=== PATIENT | male | born 1955 | race Caucasian/White ===

== ENCOUNTER → 2020-02-08 09:38 | Outpatient (CLI) | payer MEDICARE, SELFPAY ==
--- NOTE | 2020-02-08 09:44 | DI.RAD.S_ITS ---
PROCEDURE: XR LUMBAR SPINE MIN 4V INDICATIONS: lbp TECHNIQUE: 5 views of the lumbar spine were acquired. COMPARISON: None. FINDINGS: Bones: 5 nonrib-bearing vertebrae are present. There is grade 1 anterolisthesis of L4 on L5. Mild degenerative disc disease is present in lumbar spine. There is severe facet arthropathy at L4-L5 and L5-S1. No vertebral body compression fractures. No suspicious bony lesions. Soft tissues: Overlying bowel gas pattern is normal. No suspicious soft tissue calcifications. There are multiple surgical clips in pelvis. Moderate to severe atherosclerosis of the abdominal aorta. Oblique images: No pars defects. IMPRESSION: 1. Mild degenerative disc disease. 2. Severe facet arthropathy in the lower lumbar spine. 3. Grade 1 anterolisthesis of L4 on L5. No pars defects. Dictated by: Jim Garcia M.D. on 02/08/2020 at 10:51 Approved by: Jim Garcia M.D. on 02/08/2020 at 10:54
== END ==
PROVIDERS: PCP Family Medicine; Referring Provider Physical Medicine & Rehabilitation; Visit Provider Physical Medicine & Rehabilitation
DX: M54.5 Low back pain (principal); M51.16 Intervertebral disc disorders with radiculopathy, lumbar region; M47.26 Other spondylosis with radiculopathy, lumbar region; M43.16 Spondylolisthesis, lumbar region; E11.9 Type 2 diabetes mellitus without complications; Z95.0 Presence of cardiac pacemaker; Z95.2 Presence of prosthetic heart valve
CPT/HCPCS: 72110; 99214

== ENCOUNTER → 2020-02-29 09:46 | Outpatient (CLI) | payer MEDICARE, SELFPAY ==
--- NOTE | 2020-02-29 09:48 | DI.CT.S_ITS ---
PROCEDURE: CT LUMBAR SPINE WO CON INDICATIONS: Left-sided lumbar radiculopathy TECHNIQUE: Noncontrast 3 mm thick sections acquired from the T12 level to the sacrum. Sagittal and coronal reformats were constructed. For radiation dose reduction, the following was used: automated exposure control. COMPARISON: None. FINDINGS: Image quality: Excellent. Bones: There is 7 mm anterolisthesis of L4 on L5. Otherwise normal alignment. No pars defect. Vertebral body heights maintained. Disc height loss with associated degenerative endplate changes from L3-L4 through L5-S1 including endplate sclerosis and Schmorl nodes. Facet hypertrophy from L3-L4 through L5-S1 with air in the joint spaces at L4-L5 and L5-S1. T12-L1: No osseous spinal canal or neural foraminal stenosis. L1-L2: No osseous spinal canal or neural foraminal stenosis. L2-L3: No osseous spinal canal or neural foraminal stenosis. There is a circumferential disc bulge which flattens the ventral thecal sac and contributes to mild bilateral neural foraminal stenosis. L3-L4: Diffuse disc bulge flattens the ventral thecal sac and contributes to mild bilateral neural foraminal stenosis in conjunction with facet hypertrophy and buckling of the ligamentum flavum. L4-L5: Pseudo bulge related to the anterolisthesis combines with diffuse disc bulge to flatten and indent the ventral thecal sac. There may be mass effect upon the traversing L5 nerve roots. There is further mild spinal canal stenosis related to buckling of the ligamentum flavum and facet hypertrophy. These factors combine to produce moderate bilateral neural foraminal stenosis. L5-S1: No spinal canal stenosis. There is moderate to severe bilateral neural foraminal narrowing, due to a combination of disc height loss with neural foraminal labs as well as diffuse disc bulge, posterior osteophytic ridging of the endplates, and facet hypertrophy. Soft tissues: Unenhanced prevertebral and paraspinous soft tissues are grossly unremarkable. Aortic atherosclerosis. Small metallic densities seen in the retroperitoneal soft tissues are presumably post-surgical/post-procedural. IMPRESSION: Degenerative changes from L2-L3 through L5-S1. Spinal canal stenosis most pronounced at L4-L5, where there may be mild mass effect upon the traversing L5 nerve roots. Varying degrees of neural foraminal stenosis, moderate-severe at L5-S1 and moderate at L4-L5 bilaterally. Dictated by: Gigi Dye M.D. on 02/29/2020 at 10:06 Approved by: Gigi Dye M.D. on 02/29/2020 at 10:12
== END ==
PROVIDERS: PCP Family Medicine; Referring Provider Physical Medicine & Rehabilitation; Visit Provider Physical Medicine & Rehabilitation
DX: M51.16 Intervertebral disc disorders with radiculopathy, lumbar region (principal); M51.17 Intervertebral disc disorders with radiculopathy, lumbosacral region; M43.16 Spondylolisthesis, lumbar region; M48.061 Spinal stenosis, lumbar region without neurogenic claudication; M48.07 Spinal stenosis, lumbosacral region
CPT/HCPCS: 72131

== ENCOUNTER → 2020-03-24 09:12 | Outpatient (CLI) | payer MEDICARE, SELFPAY ==
[2020-03-25 17:15] LABS: COVID19 Sendout Not Detected (Not Detect)
== END ==
PROVIDERS: PCP Family Medicine; Visit Provider Physician Assistant
DX: Z11.59 Encounter for screening for other viral diseases (principal)
CPT/HCPCS: 87635

== ENCOUNTER 2020-03-27 08:11 | Outpatient (CLI) | payer MEDICARE, SELFPAY ==
[2020-03-27] VITALS (9 sets, daily range): BP systolic 108–128; BP diastolic 69–83; PULSE 61–75; RESP 14–16; TEMP 36.2; O2SAT 97–99
--- NOTE | 2020-03-27 08:12 | DI.RAD.S_ITS ---
PROCEDURE: PAIN L/S TRANSFORAMINAL INJECT INDICATIONS: SPONDYLOSIS COMPARISON: None. FINDINGS: Fluoroscopic spot filming was performed to verify placement of spinal needles at the left L4-L5 neural foramen level(s), as labeled on the films. Appropriate location(s) of the needle tip(s) was confirmed by injection of iodinated contrast. IMPRESSION: Access needle at the left L4-L5 neural foramen. Dictated by: Milady Manzo MD, PhD on 03/27/2020 at 13:36 Approved by: Milady Manzo MD, PhD on 03/27/2020 at 13:36
--- NOTE | 2020-03-27 08:46 | PC.NURSE ---
Todd is A&O able to make needs known. Green pain log with post injection instructions reviewed. Has no questions or concerns at this time.
[2020-03-27] MEDS: MIDAZOLAM 5 MG/5 ML VIAL IV (09:13)
[2020-03-27] MEDS: fentaNYL 100 MCG/2 ML INJ 50 MCG IV (09:13)
[2020-03-27] MEDS: DEXAMETHASONE 10 MG/ML VIAL 20 MG INJ (09:17)
[2020-03-27] MEDS: IOPAMIDOL 15 ML VIAL 3 ML INJ (09:17)
[2020-03-27] MEDS: BETAMETHASONE 30 MG/5 ML MDV 6 MG INJ (09:17)
[2020-03-27] MEDS: BUPIVACAINE 0.25% (PF) VIAL 2 ML INJ (09:17)
--- NOTE | 2020-03-27 09:32 | P.PCN_ITS ---
Date/Time/Diagnoses Date of procedure: 03/27/20 Time of procedure: 09:32 Pre-procedure diagnosis: 1. FORAMINAL STENOSIS WITH LE SYMPTOMS Post-procedure diagnosis: same Procedure Notes Procedure: 1. FLUOROSCOPICALLY GUIDED CONTRAST CONTROLLED TRANSFORAMINAL EPIDURAL STEROID INJECTION - LEFT L4/5 Indications: Todd is referred by Dr. Hogan for treatment of Foraminal Stenosis with Left LE Symptoms Physician: aMnjeet Reyes Total Fluoroscopy time (seconds): 21 Total sedation minutes: 15 Complications: none Procedure in detail & Post-procedure care: FINDINGS Foraminal Nerve Root Compression secondary to disc disease and facet hypertrophy DESCRIPTION OF PROCEDURE Following review of allergy and review of potential side effects and complications, including, but not necessarily limited to, infection, allergic reaction, local tissue breakdown, stroke, temporary or permanent nerve injury, paralysis, and possible , the patient indicated that the patient understood and agreed to proceed. An informed consent document was signed by the patient, witnessed by a nurse, and placed in the patient's chart. Additionally, other treatment options including medications, modalities, and physical therapy were reviewed with the patient. After review of previous anaesthesic history and IV conscious sedation the patient was deemed safe to proceed with today?s procedure with IV conscious sedation as ASA class II designation. Safety time-out was performed to confirm patient ID, procedure to be performed and site of procedure. IV sedation was accomplished with a combination of 2mg of Versed and 50mcg of Fentanyl administered by the RN after DO order, titrated to patient comfort during the course of the procedure while the patient remained responsive to all verbal commands In the prone position following sterile prep and drape of the lumbar region, the left L4/5 posterior neuroforamen was identified fluoroscopically. The skin was anesthetized via a 25-gauge 1.5-inch needle with 1% lidocaine solution. At this point, a 25-gauge 3.5-inch spinal needle was atraumatically introduced and advanced under fluoroscopic guidance through the posterior left L4/5 neuroforamen to approximately the anterior aspect of the canal. Depth was confirmed on lateral view. Following negative aspiration, injection of approximately 1.5 cc of Isovue 200 under live fluoroscopy in the AP view confirmed excellent flow along the nerve root, into the epidural space without vascular or intrathecal uptake observed Radiological data, including multiple fluoroscopic views of the lumbosacral spine, reveal a spinal needle at the left L4/5 posterior neuroforamen. Subsequent views show flow of contrast material flowing superiorly and inferiorly along the nerve root confirming epidural flow. Subsequently, a test dose of 1.5 cc of 1% lidocaine solution was administered and patient was observed for two minutes for signs or symptoms of complications, including abdominal pain, shortness of breath, bilateral upper or lower extremity weakness, nausea and vomiting, prior to steroid injection. At this point, a total of 3cc or 20mg of dexamethasone and 6mg of betamethasone was injected without incident. The procedure tolerated the procedure well without signs or symptoms of complications prior to transfer to the recovery area continued monitoring without incident. The patient was then transferred to the recovery area where they were observed for an appropriate time after the injection. The patient reported a VAS score of 9 prior to the procedure and a post- procedure VAS of 1. POST OP INSTRUCTIONS The patient was provided a Pain Log to continue to record their response to the target-specific procedure prior to follow-up visit with their referring physician. Additionally, specific post-injection care instructions and a contact number to our office were provided if concerns arise regarding possible complications associated with the procedure are suspected.
--- NOTE | 2020-03-27 10:12 | PC.NURSE ---
Patient d/c, steady on feet, left with green pain log and had no questions or concerns.
--- NOTE | 2020-03-27 16:06 | PC.NURSE ---
Tolerated procedure well. Sedation administered by ANITHA Amin. All other meds given by Dr Reyes. Vitals stable during and immediately post procedure. Report given to ANITHA Gibson for post procedure recovery.
== END 2020-03-27 09:56 | disposition home or self-care (01) ==
LOC: RAD 08:12
PROVIDERS: PCP Family Medicine; Referring Provider Family Medicine; Visit Provider Physical Medicine & Rehabilitation
DX: M48.061 Spinal stenosis, lumbar region without neurogenic claudication (principal); M51.16 Intervertebral disc disorders with radiculopathy, lumbar region
CPT/HCPCS: 64483; 99152; J0702; J1100; J2250; J3010

== ENCOUNTER → 2020-07-30 09:37 | Outpatient (CLI) | payer MEDICARE, SELFPAY ==
[2020-07-30 11:02] LABS: COVID19 -Nasal RAPID Negative (Negative)
== END ==
PROVIDERS: PCP Family Medicine; Visit Provider Physical Medicine & Rehabilitation
DX: Z01.812 Encounter for preprocedural laboratory examination (principal); Z20.828 Contact with and (suspected) exposure to other viral communicable diseases
CPT/HCPCS: 87635; C9803

== ENCOUNTER 2020-07-31 08:54 | Outpatient (CLI) | payer MEDICARE, SELFPAY ==
--- NOTE | 2020-07-31 08:56 | DI.RAD.S_ITS ---
PROCEDURE: PAIN L/S FACET INJ/BLK 1ST JASVIR COMPARISON: None. INDICATIONS: SPONDYLOSIS FINDINGS: Needle tip localization has been performed bilaterally for steroid injection at the facet joints at L4-5, and L5-S1. IMPRESSION: Successful needle tip localization for lower lumbosacral spine facet joint steroid injections bilaterally. Dictated by: Calvin Jaeger M.D. on 07/31/2020 at 11:49 Approved by: Calvin Jaeger M.D. on 07/31/2020 at 11:50
[2020-07-31 09:10] VITALS: BP 118/77; PULSE 81; RESP 15; TEMP 36.2; O2SAT 96
[2020-07-31 10:10] VITALS: BP 127/67; PULSE 67; RESP 15; O2SAT 95
[2020-07-31] MEDS: fentaNYL 100 MCG/2 ML INJ 50 MCG IV (10:10)
[2020-07-31] MEDS: MIDAZOLAM 5 MG/5 ML VIAL IV (10:10)
[2020-07-31 10:15] VITALS: BP 110/57; PULSE 77; RESP 14; O2SAT 94
[2020-07-31 10:20] VITALS: BP 110/57; PULSE 79; RESP 12; O2SAT 95
[2020-07-31] MEDS: LIDOCAINE 1% 20 ML 10 ML INJ (10:24)
[2020-07-31] MEDS: BETAMETHASONE 30 MG/5 ML MDV 12 MG INJ (10:25)
[2020-07-31] MEDS: IOPAMIDOL 15 ML VIAL 3 ML INJ (10:25)
[2020-07-31] MEDS: BUPIVACAINE 0.5% (PF) VIAL 5 ML INJ (10:25)
--- NOTE | 2020-07-31 10:28 | P.PCN_ITS ---
Date/Time/Diagnoses Date of procedure: 07/31/20 Time of procedure: 10:28 Pre-procedure diagnosis: 1. FACET ARTHROPATHY 2. AXIAL LBP 3. MULTILEVEL DDD Post-procedure diagnosis: same Procedure Notes Procedure: 1. FLUOROSCOPICALLY GUIDED CONTRAST CONTROLLED FACET JOINT INJECTIONS BILATERAL L4/5, L5/S1 Indications: Todd is referred by Dr. Hogan for treatment of Axial LBP Physician: Manjeet Reyes Total Fluoroscopy time (seconds): 12 Total sedation minutes: 10 Complications: none Procedure in detail & Post-procedure care: FINDINGS Multilevel Facet Arthropathy with Clinically significant axial LBP DESCRIPTION OF PROCEDURE Fluoroscopically guided, contrast-controlled bilateral L4/5, L5/S1 facet joint injections. Following review of allergy and review of potential side effects and complications, including, but not necessarily limited to, infection, allergic reaction, local tissue breakdown, stroke, temporary or permanent nerve injury, paralysis, and possible , the patient indicated that the patient understood and agreed to proceed. An informed consent document was signed by the patient, witnessed by a nurse, and placed in the patient's chart. Additionally, other treatment options including medications, modalities, and physical therapy were reviewed with the patient. After review of previous anaesthesic history and IV conscious sedation the patient was deemed safe to proceed with today?s procedure with IV conscious sedation as ASA class II designation. Safety time-out was performed to confirm patient ID, procedure to be performed and site of procedure. IV sedation was accomplished with a combination of 2mg of Versed and 50mcg of Fentanyl was administered by the RN after DO order, titrated to patient comfort during the course of the procedure while the patient remained responsive to all verbal commands In the prone position, following sterile prep and drape of the lumbar region, the posterior aspect of the L4/5, L5/S1 facet joints were identified fluoroscopically. The skin was anesthetized via a 25-gauge 1.5inch needle with 1% lidocaine solution into the corresponding facet joints. At this point, a 22- gauge 3.5-inch spinal needle was atraumatically introduced and advanced under fluoroscopic guidance into the corresponding facet joints. Following negative aspiration, injections of approximately 0.2cc of Isovue 200 confirmed interar ticular placement without vascular uptake. The identical procedure was then performed at the L4/5, L5/S1 facet joints on the left. Radiological data, including multiple fluoroscopic views of the lumbosacral spine, reveal a spinal needle at the L4/5, L5/S1 facet joints bilaterally. Subsequent views show flow of contrast material both superiorly and inferiorly within the joint space without vascular or intrathecal uptake. At this point, a total of 0.5cc including a mixture of 0.25cc Marcaine and 0.25cc betamethasone was injected without complication into each of the corresponding facet joints. The patient tolerated the procedure well without signs or symptoms of complications prior to transfer to the recovery area continued monitoring without incident. The patient was then transferred to the recovery area where they were observed for an appropriate period of time after the injection. The patient reported a VAS score of 7 prior to the procedure and a post- procedure VAS of 0. POST OP INSTRUCTIONS The patient was provided a Pain Log to continue to record their response to the target-specific procedure prior to follow-up visit with their referring physician. Additionally, specific post-injection care instructions and a contact number to our office were provided if concerns arise regarding possible complications associated with the procedure are suspected.
[2020-07-31 10:30] VITALS: BP 118/72; PULSE 72; RESP 17; O2SAT 96
[2020-07-31 10:35] VITALS: BP 120/73; PULSE 78; RESP 15; O2SAT 95
--- NOTE | 2020-07-31 11:33 | PC.NURSE ---
Pt found to have a pressure sore on right side of back by Dr Reyes once positioned on the table. Open, red, patient unaware. Dr Reyes cleaned, placed bacitracin and tegaderm on site. 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
== END 2020-07-31 10:45 | disposition home or self-care (01) ==
LOC: RAD 08:54
PROVIDERS: PCP Family Medicine; Referring Provider Physical Medicine & Rehabilitation; Visit Provider Physical Medicine & Rehabilitation
DX: M47.816 Spondylosis without myelopathy or radiculopathy, lumbar region (principal); M54.5 Low back pain; M51.36 Other intervertebral disc degeneration, lumbar region; M51.37 Other intervertebral disc degeneration, lumbosacral region
CPT/HCPCS: 64493; 64494; 99152; J0702; J2250; J3010

== ENCOUNTER → 2020-10-22 13:44 | Outpatient (CLI) | payer MEDICARE, SELFPAY ==
[2020-10-22 15:59] LABS: COVID19 -Nasal RAPID Negative (Negative)
== END ==
PROVIDERS: PCP Family Medicine; Visit Provider Physical Medicine & Rehabilitation
DX: Z20.822 Contact with and (suspected) exposure to COVID-19 (principal)
CPT/HCPCS: 87635; C9803

== ENCOUNTER 2020-10-23 14:49 | Outpatient (CLI) | payer MEDICARE, SELFPAY ==
[2020-10-23] VITALS (7 sets, daily range): BP systolic 101–125; BP diastolic 57–74; PULSE 84–93; RESP 12–20; TEMP 36.6–36.7; O2SAT 94–98
--- NOTE | 2020-10-23 14:50 | DI.RAD.S_ITS ---
PROCEDURE: PAIN L/S FACET INJ/BLK 1ST JASVIR COMPARISON: [facility], CT, CT LUMBAR SPINE WO CON, 02/29/2020, 9:46. [facility], CR, XR LUMBAR SPINE MIN 4V, 02/08/2020, 9:11. INDICATIONS: Spondylosis without myelopathy or radiculopathy FINDINGS: 6 intraoperative fluoroscopy images demonstrate needle placement at L4, L5 and S1 bilaterally. IMPRESSION: Needle placement under fluoroscopy guidance for pain management. Dictated by: Jim Garcia M.D. on 10/23/2020 at 16:42 Approved by: Jim Garcia M.D. on 10/23/2020 at 16:43
[2020-10-23] MEDS: fentaNYL 100 MCG/2 ML INJ 50 MCG IV (15:55)
[2020-10-23] MEDS: MIDAZOLAM 5 MG/5 ML VIAL IV (15:58)
[2020-10-23] MEDS: IOPAMIDOL 15 ML VIAL 3 ML INJ (15:59)
[2020-10-23] MEDS: LIDOCAINE 1% 20 ML 10 ML INJ (15:59)
[2020-10-23] MEDS: BUPIVACAINE 0.5% (PF) VIAL 5 ML INJ (16:00)
--- NOTE | 2020-10-23 16:16 | P.PCN_ITS ---
Date/Time/Diagnoses Date of procedure: 10/23/20 Time of procedure: 16:17 Pre-procedure diagnosis: 1. FACET ARTHROPATHY Post-procedure diagnosis: same Procedure Notes Procedure: 1. BILATERAL- L4, L5 and S1 DIAGNOSTIC MB BLOCKS with LA Anesthetic Indications: Todd is referred by Dr. Hogan for treatment of Bilateral Axial LBP. Physician: Manjeet Reyes Total Fluoroscopy time (seconds): 11 Total sedation minutes: 13 Complications: none Procedure in detail & Post-procedure care: DESCRIPTION OF PROCEDURE Fluoroscopically guided, contrast-controlled bilateral L4, L5 and S1 medial branch blocks with 0.5cc of 0.5% Marcaine. Following review of allergy and review of potential side effects and complications, including, but not necessarily limited to, infection, allergic reaction, local tissue breakdown, nerve injury, paralysis, stroke and possible , the patient indicated that the patient understood and agreed to proceed. An informed consent document was signed by the patient, witnessed by a nurse, and placed in the patient's chart. After review of previous anaesthesic history and IV conscious sedation the patient was deemed safe to proceed with today's procedure with IV conscious sedation as ASA class II designation. Safety time-out was performed to confirm patient ID, procedure to be performed and site of procedure. IV sedation was accomplished with a combination of 3mg of Versed and 50mcg of Fentanyl was administered by the RN after DO order, titrated to patient comfort during the course of the procedure while the patient remained responsive to all verbal commands In the prone position, following sterile prep and drape of the lumbar region, the right L4, L5 and S1 anatomical location of the medial branch of the dorsal ramus was identified fluoroscopically. Subsequently an anesthetic skin wheal using 1% lidocaine solution was initiated at each of the anatomical spots. Subsequently then a 22-gauge 3.5-inch spinal needle was atraumatically introduced and advanced under fluoroscopic guidance at each of the corresponding sites at the right L4, L5 and S1 MB. After negative aspiration, 0.2cc of Isovue 200 was injected, confirming placement without vascular or intrathecal uptake. Subsequently then 0.5cc of 0.5% Marcaine solution was injected at each of the corresponding sites at the right L4, L5 and S1 medial branch locations. The identical procedure was replicated on the left. The patient tolerated the procedure well without signs or symptoms of complications prior to transfer to the recovery area continued monitoring without incident. Post-procedure, the patient was monitored initiating provocative activities to measure the amount of relief from block of the facetogenic pain. The patient reported a VAS of 7 prior to the procedure and a post-procedure VAS of 1. It has been a pleasure to assist in the diagnostic and therapeutic care of your patient. POST OP INSTRUCTIONS The patient was provided with a Pain Log to complete over the next several hours and subsequent days prior to the patient's follow up with the ordering physician. If the patient has special technical operations officer relief to the solution applied, then they may be a candidate for medial branch rhizotomy. The patient is aware, was provided, once again, with a Pain Log and will follow up with the referring physician for review and clinical correlation
== END 2020-10-23 16:35 | disposition home or self-care (01) ==
PROVIDERS: PCP Family Medicine; Referring Provider Physical Medicine & Rehabilitation; Visit Provider Physical Medicine & Rehabilitation
DX: M47.816 Spondylosis without myelopathy or radiculopathy, lumbar region (principal); M47.817 Spondylosis without myelopathy or radiculopathy, lumbosacral region
CPT/HCPCS: 64493; 64494; 99152; J2250; J3010

== ENCOUNTER → 2021-01-28 09:31 | Outpatient (CLI) | payer MEDICARE, SELFPAY ==
[2021-01-28 14:47] LABS: COVID19 -Nasal RAPID Negative (Negative)
== END ==
PROVIDERS: PCP Family Medicine; Visit Provider Physical Medicine & Rehabilitation
DX: Z20.822 Contact with and (suspected) exposure to COVID-19 (principal)
CPT/HCPCS: 87635; C9803

== ENCOUNTER 2021-01-29 14:52 | Outpatient (CLI) | payer MEDICARE, SELFPAY ==
[2021-01-29] VITALS (7 sets, daily range): BP systolic 100–137; BP diastolic 54–82; PULSE 75–80; RESP 15–25; TEMP 36.8; O2SAT 94–97
--- NOTE | 2021-01-29 14:53 | DI.RAD.S_ITS ---
PROCEDURE: PAIN L/S TRANSFORAMINAL INJECT INDICATIONS: Right-sided L4-5 transforaminal BRANDIE COMPARISON: [facility], , PAIN L/S TRANSFORAMINAL INJECT, 03/27/2020, 8:16. FINDINGS: Fluoroscopic spot filming was performed to verify placement of spinal needles at the right L4-5 level(s), as labeled on the films. Appropriate location(s) of the needle tip(s) was confirmed by injection of iodinated contrast. IMPRESSION: Fluoroscopic guidance Dictated by: Dejuan Bocanegra M.D. on 01/29/2021 at 15:17 Approved by: Dejuan Bocanegra M.D. on 01/29/2021 at 15:18
[2021-01-29] MEDS: fentaNYL 100 MCG/2 ML INJ 50 MCG IV (15:15)
[2021-01-29] MEDS: MIDAZOLAM 5 MG/5 ML VIAL IV (15:15)
[2021-01-29] MEDS: IOPAMIDOL 15 ML VIAL 3 ML INJ (15:19)
[2021-01-29] MEDS: BUPIVACAINE 0.25% (PF) VIAL 2 ML INJ (15:19)
[2021-01-29] MEDS: BETAMETHASONE 30 MG/5 ML MDV 6 MG INJ (15:19)
[2021-01-29] MEDS: DEXAMETHASONE 10 MG/ML VIAL 20 MG INJ (15:20)
--- NOTE | 2021-01-29 15:30 | P.PCN_ITS ---
Date/Time/Diagnoses Date of procedure: 01/29/21 Time of procedure: 15:30 Pre-procedure diagnosis: 1. FORAMINAL STENOSIS WITH LE SYMPTOMS Post-procedure diagnosis: same Procedure Notes Procedure: 1. FLUOROSCOPICALLY GUIDED CONTRAST CONTROLLED TRANSFORAMINAL EPIDURAL STEROID INJECTION - RIGHT L4/5 TFESI Indications: Todd is referred by Dr. Hogan for treatment of Foraminal Stenosis with Right LE Symptoms Physician: Manjeet Reyes Total Fluoroscopy time (seconds): 12 Total sedation minutes: 10 Complications: none Procedure in detail & Post-procedure care: FINDINGS Foraminal Nerve Root Compression secondary to disc disease and facet hypertrophy DESCRIPTION OF PROCEDURE Following review of allergy and review of potential side effects and complications, including, but not necessarily limited to, infection, allergic reaction, local tissue breakdown, stroke, temporary or permanent nerve injury, paralysis, and possible , the patient indicated that the patient understood and agreed to proceed. An informed consent document was signed by the patient, witnessed by a nurse, and placed in the patient's chart. Additionally, other treatment options including medications, modalities, and physical therapy were reviewed with the patient. After review of previous anaesthesic history and IV conscious sedation the patient was deemed safe to proceed with today?s procedure with IV conscious sedation as ASA class II designation. Safety time-out was performed to confirm patient ID, procedure to be performed and site of procedure. IV sedation was accomplished with a combination of 3mg of Versed and 50mcg of Fentanyl was administered by the RN after DO order, titrated to patient comfort during the course of the procedure while the patient remained responsive to all verbal c ommands In the prone position following sterile prep and drape of the lumbar region, the right L4/5 posterior neuroforamen was identified fluoroscopically. The skin was anesthetized via a 25-gauge 1.5-inch needle with 1% lidocaine solution. At this point, a 25-gauge 3.5-inch spinal needle was atraumatically introduced and advanced under fluoroscopic guidance through the posterior right L4/5 neuroforamen to approximately the anterior aspect of the canal. Depth was confirmed on lateral view. Following negative aspiration, injection of approximately 1.5cc of Isovue 200 under live fluoroscopy in the AP view confirmed excellent flow along the nerve root, into the epidural space without vascular or intrathecal uptake observed Radiological data, including multiple fluoroscopic views of the lumbosacral spine, reveal a spinal needle at the right L4/5 posterior neuroforamen. Subsequent views show flow of contrast material flowing superiorly and inferiorly along the nerve root confirming epidural flow. Subsequently, a test dose of 1.5 cc of 1% lidocaine solution was administered and patient was observed for two minutes for signs or symptoms of complications, including abdominal pain, shortness of breath, bilateral upper or lower extremity weakness, nausea and vomiting, prior to steroid injection. At this point, a total of 4cc or 20mg of dexamethasone and 12mg of betamethasone was injected without incident. The procedure tolerated the procedure well without signs or symptoms of complications prior to transfer to the recovery area continued monitoring without incident. The patient was then transferred to the recovery area where they were observed for an appropriate time after the injection. The patient reported a VAS score of 7 prior to the procedure and a post- procedure VAS of 0. POST OP INSTRUCTIONS The patient was provided a Pain Log to continue to record their response to the target-specific procedure prior to follow-up visit with their referring physician. Additionally, specific post-injection care instructions and a contact number to our office were provided if concerns arise regarding possible complications associated with the procedure are suspected.
== END 2021-01-29 15:45 | disposition home or self-care (01) ==
PROVIDERS: PCP Family Medicine; Referring Provider Physical Medicine & Rehabilitation; Visit Provider Physical Medicine & Rehabilitation
DX: M48.061 Spinal stenosis, lumbar region without neurogenic claudication (principal); M51.16 Intervertebral disc disorders with radiculopathy, lumbar region
CPT/HCPCS: 64483; 99152; J0702; J1100; J2250; J3010

== ENCOUNTER → 2023-05-29 08:48 | Outpatient (CLI) | payer MEDICARE, SELFPAY ==
--- NOTE | 2023-05-29 08:50 | DI.RAD.S_ITS ---
PROCEDURE: XR LUMBAR SPINE MIN 4V INDICATIONS: BACK PAIN TECHNIQUE: 5 views of the lumbar spine were acquired, including bilateral oblique views. COMPARISON: [facility], CR, XR LUMBAR SPINE MIN 4V, 02/08/2020, 9:11. FINDINGS: Bones: 5 nonrib-bearing vertebrae are present. Anterolisthesis of L4 on L5. Postsurgical changes from L4-5 posterior spinal fixation and discectomy. There is multilevel facet arthropathy, worse at L4-5 and L5-S1. Mild multilevel disc height loss with degenerative endplate changes and spurring is present. No vertebral body compression fractures. No suspicious bony lesions. Soft tissues: Overlying bowel gas pattern is normal. No suspicious soft tissue calcifications. Atherosclerotic vascular calcifications. Multiple surgical clips projecting over the abdomen and pelvis. Oblique images: No definite pars defects. IMPRESSION: Multilevel degenerative changes of the lumbar spine status post L4-5 posterior spinal fixation and discectomy. Dictated by: Olman Sena M.D. on 05/29/2023 at 9:53 Approved by: Olman Sena M.D. on 05/29/2023 at 9:55
== END ==
PROVIDERS: PCP Family Medicine; Referring Provider Physical Medicine & Rehabilitation; Visit Provider Physical Medicine & Rehabilitation
DX: M47.816 Spondylosis without myelopathy or radiculopathy, lumbar region (principal); M54.16 Radiculopathy, lumbar region; Z98.1 Arthrodesis status
CPT/HCPCS: 72110

== ENCOUNTER 2023-08-06 08:32 | Outpatient (CLI) | payer MEDICARE, SELFPAY ==
[2023-08-06] VITALS (7 sets, daily range): BP systolic 102–130; BP diastolic 55–67; PULSE 63–73; RESP 16–24; O2SAT 97–99
--- NOTE | 2023-08-06 08:33 | DI.RAD.S_ITS ---
PROCEDURE: PAIN L INTERLAMINAR/CAUDAL INJ INDICATIONS: STENOSIS COMPARISON: None. FINDINGS: Fluoroscopic spot filming was performed to verify placement of spinal needles at the L5-S1 level(s), as labeled on the films. Appropriate location(s) of the needle tip(s) was confirmed by injection of iodinated contrast. IMPRESSION: L5-S1 translaminar epidural steroid injection. Dictated by: Galilea Allen M.D. on 08/06/2023 at 17:10 Approved by: Galilea Allen M.D. on 08/06/2023 at 17:10
[2023-08-06] MEDS: MIDAZOLAM 2 MG/2 ML VIAL IV (09:40)
[2023-08-06] MEDS: DEXAMETHASONE 10 MG/ML VIAL INJ (09:43)
[2023-08-06] MEDS: BUPIVACAINE 0.25% (PF) VIAL 2 ML INJ (09:43)
[2023-08-06] MEDS: iopamidoL 15 ML VIAL 3 ML INJ (09:43)
[2023-08-06] MEDS: BETAMETHASONE 30 MG/5 ML MDV 6 MG INJ (09:43)
--- NOTE | 2023-08-06 09:57 | P.PCN_ITS ---
Date/Time/Diagnoses Date of procedure: 08/06/23 Time of procedure: 09:57 Pre-procedure diagnosis: 1. HNP WITH RADICULAR FEATURES, 2. MULTILEVEL CENTRAL STENOSIS, Post-procedure diagnosis: same Procedure Notes Procedure: 1. FLUOROSCOPICALLY GUIDED CONTRAST CONTROLLED INTERLAMINAR EPIDURAL STEROID INJECTION - L5/S1 Indications: Chucky is referred by Dr. Hogan for treatment of Bilateral Foraminal Stenosis L>R LE symptoms. Physician: Manjeet Reyes Total Fluoroscopy time (seconds): 11 Total sedation minutes: 12 Complications: none Procedure in detail & Post-procedure care: FINDINGS Multilevel Central Spinal Stenosis with Nerve Root Compression DESCRIPTION OF PROCEDURE Fluoroscopically guided, contrast-controlled L5/S1 translaminar epidural steroid injection. Following review of allergy and review of potential side effects and complications, including, but not necessarily limited to, infection, allergic reaction, local tissue breakdown, temporary as well as permanent nerve injury, paralysis, stroke and possible , the patient indicated that the patient understood and agreed to proceed. An informed consent document was signed by the patient, witnessed by a nurse, and placed in the patient's chart. Additionally, other treatment options including modalities, medications, and physical therapy were reviewed with the patient. After review of previous anaesthesic history and IV conscious sedation the patient was deemed safe to proceed with today?s procedure with IV conscious sedation as ASA class II designation. Safety time-out was performed to confirm patient ID, procedure to be performed and site of procedure. IV sedation was accomplished with a combination of 2mg of Versed administered by the RN after DO order, titrated to patient comfort during the course of the procedure while the patient remained responsive to all verbal commands. In the prone position, following sterile prep and drape of the lumbar region, the L5/S1 translaminar space was identified fluoroscopically. The skin was anesthetized via a 25-gauge, 1.5-inch needle with 1% lidocaine solution. At this point, a 22-gauge short bevel spinal needle was atraumatically introduced and advanced under fluoroscopic guidance into the region of the L5/S1 translaminar space. Depth was confirmed on lateral view. Radiological data, including multiple fluoroscopic views of the lumbar spine, reveal a spinal needle at the L5/S1 translaminar space. Lateral views then show placement of the needle in the epidural space. Subsequent views show contrast material flowing superiorly and inferiorly in the epidural space. No vascular or intrathecal uptake is observed. At this point, using loss of resistance technique with saline and air, the epidural space was entered. This was confirmed following negative aspiration with injection of approximately 1.5cc of Isovue 200, showing excellent epidural flow without vascular or intrathecal uptake. At this point, 1 cc of 1% lidoca ine solution combined with 2cc or 10mg of dexamethasone and 6mg of betamethasone was injected without incident. The patent tolerated the procedure without signs of symptoms of complications prior to transfer to the recovery area for further monitoring. The patient was then transferred to the recovery area where they were observed for an appropriate period of time after the injection. The patient reported a VAS score of 6 prior to the procedure and a post-procedure VAS of 0. POST OP INSTRUCTIONS The patient was provided a Pain Log to continue to record their response to the target-specific procedure prior to follow-up visit with their referring physician. Additionally, specific post-injection care instructions and a contact number to our office were provided if concerns arise regarding possible complications associated with the procedure are suspected.
== END 2023-08-06 10:15 | disposition home or self-care (01) ==
PROVIDERS: PCP Family Medicine; Referring Provider Physical Medicine & Rehabilitation; Visit Provider Physical Medicine & Rehabilitation
DX: M51.17 Intervertebral disc disorders with radiculopathy, lumbosacral region (principal); M48.07 Spinal stenosis, lumbosacral region
CPT/HCPCS: 62323; 99152; J0702; J1100; J2250; J3490